=== PATIENT | female | born 1960 | race Hispanic/Latino ===

== ENCOUNTER 2019-05-01 12:22 | Emergency (ER) | payer OTHER ==
--- NOTE | 2019-05-01 13:17 | RAD REPORT ---
EXAM DESCRIPTION: RAD - Foot Left 3 View - 05/01/2019 1:10 pm CLINICAL HISTORY: PAIN COMPARISON: No comparisons FINDINGS: No fracture is seen. Mild intertarsal and tarsal-metatarsal joint degenerative changes see n. Mild soft tissue swelling along the dorsum of the forefoot. Prominent calcaneal spurs evident.
--- NOTE | 2019-05-01 13:33 | EDPHYS ---
Physician Documentation [facility] Name: Jeferson Bro Age: 59 yrs Sex: Female : 1960 Arrival Date: 05/01/2019 Time: 12:24 Bed 8 Private MD: ED Physician Rudy Wilkerson HPI: 05/01 13:48 This 59 yrs old Female presents to ER via Ambulatory with complaints of Foot snw Injury. 13:48 The patient presents with pain, that is acute. The complaints affect the dorsum of left snw foot. Context: The problem was sustained at home, resulted from an unknown cause, the patient can partially bear weight, the patient is able to ambulate, with moderate difficulty. Onset: The symptoms/episode began/occurred gradually, 3 day(s) ago, and became persistent. Associated signs and symptoms: The patient has no apparent associated signs or symptoms. Treatment prior to arrival includes: warm epsom salt soaks. Severity of symptoms: At their worst the symptoms were moderate. The patient has not experienced similar symptoms in the past. The patient has not recently seen a physician. Historical: - Allergies: 12:33 Tylenol-Codeine #4; ch - Home Meds: 12:36 metformin 1,000 mg Oral tab 1 tab 2 times per day [Active]; pravastatin 40 mg oral tab ch 1 tab once daily [Active]; irbesartan-hydrochlorothiazide 300-12.5 mg oral tab 1 tab once daily [Active]; glimepiride 1 mg Oral tab 2 tabs once daily [Active]; amlodipine 5 mg tab 1 tab once daily [Active]; - PMHx: 12:33 Hypertension; Diabetes - NIDDM; ch - PSHx: 12:33 None; ch - Immunization history:: Adult Immunizations up to date, Flu vaccine is up to date. - Social history:: Smoking status: Patient/guardian denies using tobacco. - Ebola Screening: : Patient negative for fever greater than or equal to 101.5 degrees Fahrenheit, and additional compatible Ebola Virus Disease symptoms Patient denies exposure to infectious person Patient denies travel to an Ebola-affected area in the 21 days before illness onset No symptoms or risks identified at this time. ROS: 13:45 Constitutional: Negative for fever, chills, and weight loss, Eyes: Negative for injury, snw pain, redness, and discharge, ENT: Negative for injury, pain, and discharge, Neck: Negative for injury, pain, and swelling, Cardiovascular: Negative for chest pain, palpitations, and edema, Respiratory: Negative for shortness of breath, cough, wheezing, and pleuritic chest pain, Abdomen/GI: Negative for abdominal pain, nausea, vomiting, diarrhea, and constipation, Back: Negative for injury and pain, : Negative for injury, bleeding, discharge, and swelling, Skin: Negative for injury, rash, and discoloration, Neuro: Negative for headache, weakness, numbness, tingling, and seizure, Psych: Negative for depression, anxiety, suicide ideation, homicidal ideation, and hallucinations. 13:45 MS/extremity: Positive for pain, tenderness, of the left foot. Exam: 13:45 Constitutional: This is a well developed, well nourished patient who is awake, alert, snw and in no acute distress. Head/Face: Normocephalic, atraumatic. Eyes: Pupils equal round and reactive to light, extra-ocular motions intact. Lids and lashes normal. Conjunctiva and sclera are non-icteric and not injected. Cornea within normal limits. Periorbital areas with no swelling, redness, or edema. ENT: Nares patent. No nasal discharge, no septal abnormalities noted. Tympanic membranes are normal and external auditory canals are clear. Oropharynx with no redness, swelling, or masses, exudates, or evidence of obstruction, uvula midline. Mucous membranes moist. Neck: Trachea midline, no thyromegaly or masses palpated, and no cervical lymphadenopathy. Supple, full range of motion without nuchal rigidity, or vertebral point tenderness. No Meningismus. Chest/axilla: Normal chest wall appearance and motion. Nontender with no deformity. No lesions are appreciated. Cardiovascular: Regular rate and rhythm with a normal S1 and S2. No gallops, murmurs, or rubs. Normal PMI, no JVD. No pulse deficits. Respiratory: Lungs have equal breath sounds bilaterally, clear to auscultation and percussion. No rales, rhonchi or wheezes noted. No increased work of breathing, no retractions or nasal flaring. Abdomen/GI: Soft, non-tender, with normal bowel sounds. No distension or tympany. No guarding or rebound. No evidence of tenderness throughout. Back: No spinal tenderness. No costovertebral tenderness. Full range of motion. Skin: Warm, dry with normal turgor. Normal color with no rashes, no lesions, and no evidence of cellulitis. Neuro: Awake and alert, GCS 15, oriented to person, place, time, and situation. Cranial nerves II-XII grossly intact. Motor strength 5/5 in all extremities. Sensory grossly intact. Cerebellar exam normal. Normal gait. Psych: Awake, alert, with orientation to person, place and time. Behavior, mood, and affect are within normal limits. 13:45 Musculoskeletal/extremity: Extremities: grossly normal except: noted in the left foot: tenderness, ROM: intact in all extremities, Circulation is intact in all extremities. Sensation intact. Weight bearing: able to fully bear weight, painful. Vital Signs: 12:33 BP 120 / 63; Pulse 76; Resp 18; Temp 98.4; Pulse Ox 98% on R/A; Weight 98.43 kg; Height ch 5 ft. 3 in. (160.02 cm); Pain 2/10; 12:33 Body Mass Index 38.44 (98.43 kg, 160.02 cm) ch MDM: 13:21 Patient medically screened. snw 13:48 Data reviewed: vital signs, nurses notes. Data interpreted: Pulse oximetry: on room air snw is 98 %. Interpretation: normal. Counseling: I had a detailed discussion with the patient and/or guardian regarding: the historical points, exam findings, and any diagnostic results supporting the discharge/admit diagnosis, radiology results, the need for outpatient follow up, to return to the emergency department if symptoms worsen or persist or if there are any questions or concerns that arise at home. Special discussion: Based on the history and exam findings, there is no indication for further emergent testing or inpatient evaluation. I discussed with the patient/guardian the need to see the primary care provider for further evaluation of the symptoms. 05/01 12:34 Order name: XRAY Foot LEFT 3 View; Complete Time: 13:20 ch 05/01 13:31 Order name: Gildardo wrap-joint; Complete Time: 13:47 snw 05/01 13:31 Order name: Post-op shoe; Complete Time: 13:47 snw Administered Medications: 13:49 Drug: TORadol 30 mg Route: IM; Site: left deltoid; aa5 14:05 Follow up: Response: No adverse reaction aa5 Disposition: 17:21 Co-signature as Attending Physician, Rudy Wilkerson MD. Disposition: 05/01/19 13:32 Discharged to Home. Impression: Pain in left foot. - Condition is Stable. - Discharge Instructions: Elastic Bandage and RICE, Musculoskeletal Pain, Cryotherapy, Heat Therapy. - Prescriptions for Diclofenac Sodium 75 mg Oral Tablet Sustained Release - take 1 tablet by ORAL route 2 times per day; 30 tablet. - Work release form, Medication Reconciliation Form, Thank You Letter, Antibiotic Education, Prescription Opioid Use form. - Follow up: Private Physician; When: 1 week; Reason: Recheck today's complaints, Continuance of care, Re-evaluation by your physician. Follow up: Emergency Department; When: As needed; Reason: Worsening of condition. Signatures: Dispatcher [employer] EDMS Angella Brady RN RN ch Therrien, Shelly, PROGRAM/MUSIC DIRECTOR-C PROGRAM/MUSIC DIRECTOR-Rubenw Yas Valle RN RN aa5 Starr, Gregory, MD MD Corrections: (The following items were deleted from the chart) 13:48 13:32 05/01/2019 13:32 Discharged to Home. Impression: Pain in right foot. Condition is snw Stable. Forms are Medication Reconciliation Form, Thank You Letter, Antibiotic Education, Prescription Opioid Use. Follow up: Private Physician; When: 1 week; Reason: Recheck today's complaints, Continuance of care, Re-evaluation by your physician. Follow up: Emergency Department; When: As needed; Reason: Worsening of condition. snw 14:26 13:48 05/01/2019 13:32 Discharged to Home. Impression: Pain in left foot. Condition is aa5 Stable. Discharge Instructions: Elastic Bandage and RICE, Musculoskeletal Pain, Cryotherapy, Heat Therapy. Prescriptions for Diclofenac Sodium 75 mg Oral Tablet Sustained Release - take 1 tablet by ORAL route 2 times per day; 30 tablet. and Forms are Medication Reconciliation Form, Thank You Letter, Antibiotic Education, Prescription Opioid Use, Work release form. Follow up: Private Physician; When: 1 week; Reason: Recheck today's complaints, Continuance of care, Re-evaluation by your physician. Follow up: Emergency Department; When: As needed; Reason: Worsening of condition. snw
--- NOTE | 2019-05-01 13:33 | ER ---
Nurse's Notes [facility] Name: Jeferson Bro Age: 59 yrs Sex: Female : 1960 Arrival Date: 05/01/2019 Time: 12:24 Bed 8 Private MD: Diagnosis: Pain in left foot Presentation: 05/01 12:31 Presenting complaint: Patient states: pain to top of foot started Sunday morning, now ch foot is swollen and very painful. denies trauma. Transition of care: patient was not received from another setting of care. Onset of symptoms was April 29, 2019. Risk Assessment: Do you want to hurt yourself or someone else? Patient reports no desire to harm self or others. Initial Sepsis Screen: Does the patient meet any 2 criteria? No. Patient's initial sepsis screen is negative. Does the patient have a suspected source of infection? No. Patient's initial sepsis screen is negative. Care prior to arrival: None. 12:31 Method Of Arrival: Ambulatory 12:31 Acuity: RUBIO 4 Triage Assessment: 12:33 General: Appears in no apparent distress. uncomfortable, Behavior is calm, cooperative, ch appropriate for age. Pain: Complains of pain in left foot Pain currently is 2 out of 10 on a pain scale. at worst was 8 out of 10 on a pain scale. Musculoskeletal:. 12:36 Injury Description: None. Historical: - Allergies: 12:33 Tylenol-Codeine #4; - Home Meds: 12:36 metformin 1,000 mg Oral tab 1 tab 2 times per day [Active]; pravastatin 40 mg oral tab ch 1 tab once daily [Active]; irbesartan-hydrochlorothiazide 300-12.5 mg oral tab 1 tab once daily [Active]; glimepiride 1 mg Oral tab 2 tabs once daily [Active]; amlodipine 5 mg tab 1 tab once daily [Active]; - PMHx: 12:33 Hypertension; Diabetes - NIDDM; - PSHx: 12:33 None; - Immunization history:: Adult Immunizations up to date, Flu vaccine is up to date. - Social history:: Smoking status: Patient/guardian denies using tobacco. - Ebola Screening: : Patient negative for fever greater than or equal to 101.5 degrees Fahrenheit, and additional compatible Ebola Virus Disease symptoms Patient denies exposure to infectious person Patient denies travel to an Ebola-affected area in the 21 days before illness onset No symptoms or risks identified at this time. Screenin:20 Abuse screen: Denies threats or abuse. Nutritional screening: No deficits noted. aa5 Tuberculosis screening: No symptoms or risk factors identified. Fall Risk None identified. Assessment: 13:20 General: Appears comfortable, Behavior is calm, cooperative. Pain: Complains of pain in aa5 dorsum of left foot Pain does not radiate. Pain currently is 2 out of 10 on a pain scale. Quality of pain is described as aching, Is continuous. Neuro: Level of Consciousness is awake, alert, obeys commands, Oriented to person, place, time, situation. Cardiovascular: Patient's skin is warm and dry. Respiratory: Airway is patent Respiratory effort is even, unlabored, Respiratory pattern is regular, symmetrical. GI: No signs and/or symptoms were reported involving the gastrointestinal system. : No signs and/or symptoms were reported regarding the genitourinary system. EENT: No signs and/or symptoms were reported regarding the EENT system. Derm: Skin is pink, warm \T\ dry. Musculoskeletal: Range of motion: intact in all extremities, Swelling present in dorsum of left foot. 14:05 Reassessment: Patient is alert, oriented x 3, equal unlabored respirations, skin aa5 warm/dry/pink. Vital Signs: 12:33 BP 120 / 63; Pulse 76; Resp 18; Temp 98.4; Pulse Ox 98% on R/A; Weight 98.43 kg; Height ch 5 ft. 3 in. (160.02 cm); Pain 2/10; 12:33 Body Mass Index 38.44 (98.43 kg, 160.02 cm) ED Course: 12:24 Patient arrived in ED. as 12:32 Triage completed. ch 12:33 Arm band placed on left wrist. Patient placed in waiting room. ch 13:08 XRAY Foot LEFT 3 View In Process Unspecified. EDMS 13:11 [facility]C [facility] snw 13:11 Rudy Wilkerson MD is Attending Physician. snw 13:20 Patient has correct armband on for positive identification. Bed in low position. Call aa5 light in reach. 13:25 Yas Valle, RN is Primary Nurse. aa5 13:50 Gildardo wrap to left ankle and dorsum of left foot and left foot Ortho shoe applied to left dh3 foot. 14:05 No provider procedures requiring assistance completed. Patient did not have IV access aa5 during this emergency room visit. Administered Medications: 13:49 Drug: TORadol 30 mg Route: IM; Site: left deltoid; aa5 14:05 Follow up: Response: No adverse reaction aa5 Outcome: 13:32 Discharge ordered by . rosana 14:05 Discharged to home via wheelchair, with family. aa5 14:05 Condition: stable 14:05 Discharge instructions given to patient, Instructed on discharge instructions, follow up and referral plans. medication usage, Demonstrated understanding of instructions, follow-up care, medications, Prescriptions given X 1. 14:10 Patient left the ED. aa5 Signatures: Dispatcher [employer] EDMS Angella Brady RN RN Kirstie Webster, SUPPORT MANAGER-C SUPPORT MANAGER-Marie Diana as Yas Valle, RN RN aa5 Margoth Espinoza [facility] Corrections: (The following items were deleted from the chart) 14:27 14:26 Patient left the ED. aa5 aa5
[2019-05-01] MEDS ORDERED: KETOROLAC 30 MG/ML INJ ONE (13:42)
[2019-05-01 14:53] VITALS: BP 120/63; TEMP 98.4; O2SAT 98
== END 2019-05-01 14:26 | disposition home or self-care (01) ==
LOC: ER 12:22
DX: M79.672 Pain in left foot (principal); I10 Essential (primary) hypertension; E11.9 Type 2 diabetes mellitus without complications; Z88.5 Allergy status to narcotic agent
CPT/HCPCS: 96372; 99284